=== PATIENT | male | born 1985 | race Caucasian/White ===

== ENCOUNTER 2016-10-10 09:07 | Day surgery (SDC) | payer OTHER ==
[2016-10-09 14:56] VITALS: BMI 25.9
[~2016-10-10] VITALS: Ht 177.8 cm; Wt 81.4 kg
[2016-10-10] VITALS (11 sets, daily range): BP systolic 129–142; BP diastolic 72–94; PULSE 77–89; RESP 9–16; Ht 177.8 cm; Wt 81.4 kg
[~2016-10-10 09:07] MED LIST: BUPIVACAINE 0.5% (SDV) 30 ML INJ ONE; LIDOCAINE 1%/EPI 30 ML INJ ONE
[2016-10-10] MEDS ORDERED: SOD CHLORIDE 0.9% 1,000 ML IV SCH (09:30)
[2016-10-10] MEDS ORDERED: CEFAZOLIN 2 GM/50 ML (PMX) 50 ML IVPB ONE (09:30)
[2016-10-10] MEDS ORDERED: MIDAZOLAM 1 MG/ML 2 ML INJ ONE (10:31)
[2016-10-10] MEDS ORDERED: LIDOCAINE 2% (SDV) 5 ML INJ ONE (10:31)
[2016-10-10] MEDS ORDERED: FENTAnyl 50 MCG/ML VIAL ONE ×2 (10:31→13:24)
[2016-10-10] MEDS ORDERED: CEFAZOLIN 1 GM INJ ONE (10:31)
[2016-10-10] MEDS ORDERED: PROPOFOL 20 ML ONE (10:31)
[2016-10-10] MEDS ORDERED: PROCHLORPERAZINE 10 MG INJ IV PRN (11:00)
[2016-10-10] MEDS ORDERED: METOCLOPRAMIDE 10 MG INJ IV PRN (11:00)
[2016-10-10] MEDS ORDERED: HYDROmorphONE (0.2 MG/ML) 10ML SYG IV PRN ×2 (11:00)
[2016-10-10] MEDS ORDERED: DIPHENHYDRAMINE 50 MG INJ IV PRN (11:00)
[2016-10-10] MEDS ORDERED: FENTAnyl 50 MCG/ML VIAL IV PRN (11:00)
[2016-10-10] MEDS ORDERED: OXYCODONE/ACETAMINOPHEN (5/325) TAB PO PRN ×2 (11:00)
[2016-10-10] MEDS ORDERED: MEPERIDINE 25 MG INJ IV PRN (11:00)
[2016-10-10] MEDS ORDERED: ONDANSETRON 4 MG INJ IV PRN (11:00)
[2016-10-10] MEDS ORDERED: BUPIVACAINE 0.25% (MPF) 30 ML INJ ONE (11:15)
[2016-10-10] MEDS ORDERED: POLYMYXIN/BACITRACIN 1L IRRIG ONE (11:15)
[2016-10-10] MEDS ORDERED: ONDANSETRON 4 MG INJ ONE (11:37)
[2016-10-10] MEDS ORDERED: METOCLOPRAMIDE 10 MG INJ ONE (11:37)
[2016-10-10] MEDS ORDERED: HYDROmorphONE 2 MG/ML SYG ONE (11:50)
[2016-10-10] MEDS ORDERED: KETOROLAC 30 MG INJ ONE (11:50)
--- NOTE | 2016-10-10 12:54 | OPR ---
DATE OF OPERATION: 10/10/2016 INDICATION: This is a 30-year-old male with a right inguinal hernia. He requests surgical repair. Risks, alternatives, benefits, and personnel were discussed with the patient. The patient expresse d understanding and consents to the operation. PREOPERATIVE DIAGNOSIS: Right inguinal hernia. POSTOPERATIVE DIAGNOSIS: Right inguinal hernia. OPERATION: Open right inguinal hernia repair, medium sized Ultrapro hernia system mesh. SURGEON: Arnie Sellers MD SPECIMENS: None. COMPLICATIONS: None. ANESTHESIA: General. DESCRIPTION OF PROCEDURE: The patient was taken to the OR and prepped and draped in usual sterile f ashion. Surgical timeout was performed. IV antibiotics were given. Right inguinal oblique incisio n was made with a 10 blade. Dissection cautery was carried down to external oblique fascia which wa s opened with a 15 blade. This incision is extended medial inferiorly and lateral superiorly with M etzenbaum scissors. Cord structures are encircled with a Debbi drain. Indirect hernia was identi fied and suture ligated with 0 Vicryl. After the contents were examined, there was no evidence of a ny sliding component. The disk portion is affixed to the ligated hernia. This disk is secured in p lace with a running 0 Prolene from the pubic tubercle along the shelving edge of the inguinal ligame nt and superiorly to the internal oblique with interrupted 3-0 Vicryl. Onlay mesh was secured in a similar fashion with a running 0 Prolene from the pubic tubercle along the shelving edge of the ingu inal ligament. Straps are created and reapproximated to recreate the inguinal ring with interrupted 0 Prolene. Onlay mesh was secured to the internal oblique with interrupted 3-0 Vicryl. External o blique fascia was closed in a running 3-0 Vicryl. Tami's was closed with interrupted 3-0 Vicryl. Skin was closed using interrupted 3-0 Vicryl and running 4-0 Monocryl. Dry dressings were applied after local anesthesia was injected. Dictated By: ARNIE LEWIS/SHERRON Conf#: [id number] DID#: [id number]
[2016-10-10] MEDS ORDERED: HYDROCODONE/APAP (5/325) TAB PO ONE (13:00)
== END 2016-10-10 14:15 | disposition home or self-care (01) ==
LOC: SDS 09:07
PROVIDERS: ATTEND Surgery
DX: K40.90 Unilateral inguinal hernia, without obstruction or gangrene, not specified as recurrent (principal)
CPT/HCPCS: 49505; C1781; J0690; J1170; J1885; J2250; J2405; J2765; J3010; Z7512; Z7610